=== PATIENT | female | born 1995 | race African-American/Black ===

== ENCOUNTER 2017-02-10 20:51 | Emergency (ER) | payer SELFPAY ==
[2017-02-10] MEDS ORDERED: DEXAMETHASONE SOD PHOS 10 MG/1 ML VIAL ONE (22:40)
[2017-02-10] MEDS ORDERED: PENICILLIN G BENZATHINE 1.2 MMU/2 ML SYRINGE IM ONE (22:41)
== END 2017-02-10 23:50 | disposition home or self-care (01) ==
LOC: ED 20:51
DX: J02.0 Streptococcal pharyngitis (principal); F17.210 Nicotine dependence, cigarettes, uncomplicated